=== PATIENT | female | born 1955 | race Caucasian/White ===

== ENCOUNTER 2025-05-01 12:43 | Emergency (ER) | payer OTHER, SELFPAY ==
[2025-05-01 12:48] VITALS: BP 203/102; PULSE 84; RESP 16; TEMP 37.1; O2SAT 92; BMI 34.0
--- OUTSIDE RECORDS SUMMARY | 2025-05-01 12:49 | XMS_ITS | Clinical Summary ---
Author Organization [facility] Address formerly [facility] [place] [address] Care Team Providers Care Senior Counsel Commercial Name Role Phone Claude Allen MD Unavailable Unavailable Jung Clayton MD Unavailable [phone] Pcp, No Primary Care Provider Unavailabl e Allergies No known active allergies Medications biotin 1 mg cap Take 1 capsule by mouth. 0 0 Active aspirin chewable 81 mg chewable tablet Chew 1 Tablet by mouth once daily. Active cholecalciferol, Vitamin D3, 2,000 unit tablet Take 1 Tablet by mouth once daily. Active calcium carbonate (OS-BYRON 500) 500 mg calcium (1,250 mg) tablet Take 1 Tablet by mouth once daily with a meal. Active multivitamin chew Chew 1 Tablet by mouth once daily. Active Magnesium 200 mg tabIndications:Pal pitations Take magnesium 200-400 mg daily or as needed. Prefer to use magnesium glycinate, but if unable to find, use malate or citrate. 30 Tablet 1 Active nystatin powder (MYCOSTATIN) powderIndications: Rash Apply 1 Strip topically to affected area(s) 2 times daily if needed. 60 g 1 1 Active verapamiL (VERELAN) 240 mg Controlled-Release capsuleIndications :Hypertrophic cardiomyopathy (HC),Coronary artery disease involving [place] coronary artery without angina pectoris, unspecified whether [place] or transplanted heart TAKE ONE CAPSULE BY MOUTH EVERY MORNING ++due for follow-up in september 2023++ 30 Capsule 4 Active metoprolol tartrate (LOPRESSOR) 25 mg tabletIndications: Hypertrophic cardiomyopathy (HC),Palpitations Take 1 Tablet (25 mg) by mouth two times daily. 180 Tablet 3 5 Active verapamiL (VERELAN) 240 mg Controlled-Release capsuleIndications :Hypertrophic cardiomyopathy (HC),Coronary artery disease involving [place] coronary artery without angina pectoris, unspecified whether [place] or transplanted heart Take 1 Capsule (240 mg) by mouth once daily in the morning. 90 Capsule 3 5 Active Active Problems Problem Noted Date Diagnosed Date Obstructive hypertrophic cardiomyopathy 04/23/20 21 Tobacco use disorder 09/15/2015 Overview (04/23/2021): oast use of Chantix; trying E-Cig; clinic resources provided Nontoxic uninodular goiter 02/03/2007 Encounters Date Type Department Care Team Description 02/07/2025 11:00 AM CDT Office Visit [facility] [place] [address] Jung Clayton MD Follow Up (After Testing) 02/07/2025 Travel from Last 3 Months Immunizations Immunization Administration Dates Next Due COVID-19 vaccine (Moderna 100mcg/0.5mL) PF, MDV 09/26/2020,08/29/2020 Influenza, High-dose Inactivated 04/03/2019 Influenza, High-dose Quadrivalent Inactivated ,03/10/2020 Influenza, IIV3 (Age >=3 years) 08/15/2006 Influenza, IIV4 (=>6mos) MDV 04/25/2017,05/05/20 16 Pneumococcal Poly,23-Valent (Pneumovax) 09/15/19 16,04/23/2009 Zoster (Shingrix-RZV, recombinant) 05/14/2020, Family History Medical History Relation Name Comments Aneurysm Mother COPD Mother Cancer-breast Paternal Aunt Relation Name Status Comments Father Mother Paternal Aunt Social History Tobacco Use Types Packs/Day Years Used Date Smoking Tobacco: Former Cigarettes 1.5 30 1 08/11/1990 - 06/10/2021 Smokeless Tobacco: Never Tobacco Cessation:Counseling Given: Not Answered Alcohol Use Standard Drinks/Week Comments Not Currently 0 (1 standard drink = 0.6 oz pur e alcohol) PHQ-2 Answer Date Recorded PHQ-2 TOTAL SCORE 0 04/23/2021 Financial Resource Strain Answer Date R ecorded Difficulty of Paying Living Expenses Not on file 07/08/2021 Difficulty of Paying Living Expenses Not on file 07/08/2021 Comments No Sex and Gender Information Value Date Recorded Sex Assigned at Not on file Legal Sex Female 6:16 AM SCREEN MAKING TECHNICIAN Gender Identity Not on file Sexual Orientation Not on file Occupation Industry Job Start Date Job End Date retired, 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 Not on file Not on file Not on file Obstetrics History Last Filed Vital Signs Vital Sign Reading Time Taken Comments Blood Pressure 148/83 02/07/2025 10:50 AM CDT Pulse 70 02/07/2025 10:48 AM CDT Temperature 36.7 C (98 F) 05/28/2022 2:36 PM SCREEN MAKING TECHNICIAN Respiratory Rate 17 02/07/2025 10:48 AM CDT Oxygen Saturation 97% 02/07/2025 10:48 AM CDT Inhaled Oxygen Concentration - - Weight 96.2 kg (212 lb) 02/07/2025 10:48 AM CDT Height 168.9 cm (5' 6.5) 02/07/2025 10:48 AM CD T Body Mass Index 33.71 02/07/2025 10:48 AM CDT Plan of Treatment Health Maintenance Due Date Last Done Comments Tetanus booster 1964 Hepatitis C screening for age 18-79 10/24/1971 Colonoscopy through age 75 1998 RSV vaccine for adults or (1 - Risk 60-74 years 1-dose series) 2013 Pneumococcal series for age 50+ (2 of 2 - PCV) 09/14/2016 09/15/2015, 04/23/[address] (for lung CA) age 50-80 07/28/2017 07/28/2016 Depression screening for age 12+ 04/23/2022 04/23/2021 Medicare Wellness for age 65+ 04/24/2022 04/23/2021 Mammogram for age 45-75 08/26/2024 08/26/2023, 08/11 Influenza Vaccine (#1) 2025 9, 04/25/2017, 05/05/2016, Additional history exists BMI (ht and wt on same day) for age 18+ 02/07/2026 02/07/2025, 10/20/2023, 09/23/2022, Additional history exists Lipids for age 45-75 09/21/2027 09/20/2022, 04/23/20 Zoster (shingles) series for age 50+ Completed 05/14/2020, 03/10/2020 DEXA/DXA scan for age 65+ Completed 04/23/2021 COVID-19 vaccine series Completed 11/10/19, 04/11/2024, 10/05/2023, Additional history exists Hepatitis B series for 19+ Aged Out N o longer eligible based on patient's age to complete this topic Procedures Procedure Name Priority Date/Time Associated Diagnosis Comments XR MAMMO BILAT SCREENING Routine 08/26/2023 8:25 AM SCREEN MAKING TECHNICIAN Visit for screening mammogram LC LIPID PANEL AND CHOL/HDL RATIO Routine 09/20/2022 10:08 AM CDT Hyperlipemia XR DXA BONE DENSITY 2 SITES AXIAL Routine 04/23/2021 11:[address] CHEST W STAT 07/28/2016 2:02 PM SCREEN MAKING TECHNICIAN Abnormal chest x-ray from Last 3 Months or Most Recently Relevant to Health Maintenance Results * XR MAMMO BILAT SCREENING (08/26/2023 8:25 AM SCREEN MAKING TECHNICIAN) Anatomical Region Laterality Modality BREASTS, Breast Left, Breast Right Bilateral Mammography Impressions 08/29/2023 9:12 AM SCREEN MAKING TECHNICIAN There is no radiographic evidence for malignancy. Recommend annual mammograms. MAMMOGRAM ASSESSMENT: ACR 1 Negative PATIENTS: You will also receive a letter with your examination results in an easy to read format. If you have questions about your results, please contact your referring provider. Narrative 08/29/2023 9:12 AM SCREEN MAKING TECHNICIAN For Patients: As a result of the Cures Act, medical imaging exams and procedure reports are released immediately into your electronic medical record. You may view this report before your referring provider. If you have questions, please contact your health care provider. XR MAMMO BILAT SCREENING [[id number]] CLINICAL HISTORY: This is an asymptomatic 67 y.o. patient. INDICATION FOR EXAM: Mammogram Screening. TECHNIQUE: CC & MLO views were obtained. This study was evaluated with the assistance of Computer-Aided Detection. COMPARISON FILM: Yes 08/11/21 [facility] FINDINGS: The breasts have scattered areas of fibroglandular density. There are no dominant masses, suspicious micro calcifications or areas of architectural distortion. Janan Severino DO MAMMO Final Result * LC LIPID PANEL AND CHOL/HDL RATIO (09/20/2022 10:08 AM CDT) Pathologist [facility] Cholesterol, Total 138 100 - 199 mg/dL 09/22/2022 10:10 AM [facility] Triglycerides 149 0 - 149 mg/dL 09/22/2022 10:10 AM [facility] HDL Cholesterol 41 >39 mg/dL 10:10 AM [facility] VLDL Cholesterol Byron 26 5 - 40 mg/dL 09/22/2022 10:10 AM [facility] LDL Chol Calc (NIH) 71 0 - 99 mg/dL 09/22/2022 10:10 AM [facility] T. Chol/HDL Ratio 3.4 0.0 - 4.4 ratio 09/22/2022 10:10 AM [facility] ([facility] Comment: T. Chol/HDL Ratio Men Women 1/2 Avg.Risk 3.4 3.3 Avg.Risk 5.0 4.4 2X Avg.Risk 9.6 7.1 3X Avg.Risk 23.4 11.0 Blood BLOOD SPECIMEN / Unknown Venipuncture / Unknown 09/20/2022 10:08 AM CDT 09/20/2022 10:08 AM CDT Narrative [facility] ([facility]) - 09/22/2022 10:10 AM CDT Performed at: 01 - [facility] [address], [place], [place] [id number] Door Slinger: Liam Maharaj MD, Phone: [phone] us Janna Severino SEND OUTS Final Result [facility] ([facility]) [address] [place] [address], [place] * XR DXA BONE DENSITY 2 SITES AXIAL [17446.1] (04/23/2021 11:20 AM CDT) Anatomical Region Laterality Modality Spine, HIPS, HIPL, HIPR Computed Radiography 04/23/2021 11:2 0 AM CDT Narrative 04/23/2021 11:49 AM CDT For Patients: As a result of the Cures Act, medical imaging exams and procedure reports are released immediately into your electronic medical record. You may view this report before your referring provider. If you have questions, please contact your health care provider. EXAM: XR DXA BONE DENSITY 2 SITES AXIAL LOCATION: [facility] DATE/TIME: 04/23/2021 11:20 AM INDICATION: Postmenopausal. Bone mineral density screening. I. other (screening- at minimum one option in 2-5 must be selected) - z13.820 Menopause COMPARISON: None. TECHNIQUE: Dual-energy x-ray absorptiometry performed with routine technique. FINDINGS: Lumbar Spine: L1-L4: BMD: 1.160 g/cm2. T-score: -0.2. Z-score: 0.9 RIGHT Hip Total: BMD: 1.000 g/cm2. T-score: -0.1. Z-score: 0.9 RIGHT Hip Femoral neck: BMD: 1.003 g/cm2. T-score: -0.3. Z-score: 1.0 LEFT Hip Total: BMD: 0.953 g/cm2. T-score: -0.4. Z-score: 0.5 LEFT Hip Femoral neck: BMD: 0.870 g/cm2. T-score: -1.2. Z-score: 0.0 WHO Criteria: Normal: T score at or above -1 SD Osteopenia: T score between -1 and -2.5 SD Osteoporosis: T score at or below -2.5 SD FRAX Results: 10 year probability of major osteoporotic fracture is 15.1%, and of hip fracture is 2.1%, based on left femoral neck BMD. RECOMMENDATIONS: Consider treatment if major osteoporotic fracture score is greater than or equal to 20%. Consider treatment if hip fracture score is greater than or equal to 3%. IMPRESSION: Low bone density (OSTEOPENIA). T score meets the World Health Organization (WHO) criteria for low bone density (osteopenia) at one or more measured sites. The risk of osteoporotic fracture increased approximately two-fold for each SD decrease in T-score. Procedure Note Rony Zendejas MD - 04/23/2021 For Patients: As a result of the Cures Act, medical imagingexams and procedure reports are released immediately into your electronicmedical record. You may view this report before your referring provider.If you have questions, please contact your health care provider. EXAM: XR DXA BONE DENSITY 2 SITES AXIAL LOCATION: [facility] DATE/TIME: 04/23/2021 11:20 AM INDICATION: Postmenopausal. Bone mineral density screening. I. other(screening- at minimum one option in 2-5 must be selected) - z13.820Menopause COMPARISON: None. TECHNIQUE: Dual-energy x-ray absorptiometry performed with routinetechnique. FINDINGS: Lumbar Spine: L1-L4: BMD: 1.160 g/cm2. T-score: -0.2. Z-score: 0.9 RIGHT Hip Total: BMD: 1.000 g/cm2. T-score: -0.1. Z-score: 0.9 RIGHT Hip Femoral neck: BMD: 1.003 g/cm2. T-score: -0.3. Z-score: 1.0 LEFT Hip Total: BMD: 0.953 g/cm2. T-score: -0.4. Z-score: 0.5 LEFT Hip Femoral neck: BMD: 0.870 g/cm2. T-score: -1.2. Z-score: 0.0 WHO Criteria: Normal: T score at or above -1 SD Osteopenia: T score between -1 and -2.5 SD Osteoporosis: T score at or below -2.5 SD FRAX Results: 10 year probability of major osteoporotic fracture is 15.1%,and of hip fracture is 2.1%, based on left femoral neck BMD. RECOMMENDATIONS: Consider treatment if major osteoporotic fracture score is greater than orequal to 20%. Consider treatment if hip fracture score is greater than orequal to 3%. IMPRESSION: Low bone density (OSTEOPENIA). T score meets the World HealthOrganization (WHO) criteria for low bone density (osteopenia) at one ormore measured sites. The risk of osteoporotic fracture increasedapproximately two-fold for each SD decrease in T-score. us Janna Severino DO DEXA Final Result * CT CHEST W (07/28/2016 2:02 PM SCREEN MAKING TECHNICIAN) Anatomical Region Laterality Modality CHEST, THORAX, HEART Computed To mography 07/28/2016 2:02 PM SCREEN MAKING TECHNICIAN Narrative 07/28/2016 2:19 PM SCREEN MAKING TECHNICIAN [facility] IMAGING CT CHEST W 07/28/2016 2:02 PM INDICATION: Abnormal Chest X-ray TECHNIQUE: Routine chest. Dose reduction techniques were used. IV CONTRAST: Omnipaque 300 50ml COMPARISON: Rib series 07/28/2016. FINDINGS: LUNGS AND PLEURA: There is diffuse interlobular septal thickening with scattered geographic groundglass attenuation. The left lung is relatively clear without mass or nodularity. No consolidation. There is mild atelectasis in the medial segment of the right middle lobe. In the anterior basal segment of the right lower lobe, there is patchy consolidation with diffuse surrounding groundglass and intralobular septal thickening. This correlates with the finding on recent prior radiographs. There is mild fluid or thickening in the interstitium bilaterally and along the right major fissure. There is a small right pleural effusion. No pneumothorax. MEDIASTINUM: Partially visualized in the right upper thyroid lobe is a 7 mm low-density nodule with adjacent calcification. There are multiple mildly enlarged mediastinal lymph nodes, measuring up to 1.0 cm short axis in the precarinal station on series 3, image 80. There is mild subcarinal adenopathy that measures 1.9 x 1.7 cm. Mild right hilar adenopathy. No cardiomegaly. Mild pericardial effusion. No acute abnormality in the visualized thoracic aorta. Mild aortic atherosclerosis. Atherosclerotic calcification the distribution of the LAD and LCx. LIMITED UPPER ABDOMEN: Mild diffuse low-attenuation in the liver with probable focal fatty infiltration or perfusion anomaly adjacent to the falciform ligament. MUSCULOSKELETAL: Negative. CONCLUSION: 1. Right lower lobe consolidation with extensive surrounding groundglass attenuation. This likely represents an acute infection. This may represent bacterial pneumonia. After an appropriate course of treatment, recommend follow-up standard PA and lateral views of the chest in 6 weeks to document resolution. 2. There is also moderate bilateral interstitial edema, small right pleural effusion, and a mild pericardial effusion. 3. There is mild, probably reactive mediastinal and right hilar adenopathy. 4. Atherosclerosis with at least two-vessel coronary artery disease. 5. There is a 7 mm right thyroid lobe nodule with adjacent calcification. Please consider further evaluation with nonemergent thyroid ultrasound. 6. Mild diffuse hepatic steatosis. Procedure Note So, Gene De La Curz MD - 07/28/2016 [facility] IM[facility] CT CHEST W 07/28/2016 2:02 PM INDICATION: Abnormal Chest X-ray TECHNIQUE: Routine chest. Dose reduction techniques were used. IV CONTRAST: Omnipaque 300 50ml COMPARISON: Rib series 07/28/2016. FINDINGS: LUNGS AND PLEURA: There is diffuse interlobular septal thickening withscattered geographic groundglass attenuation. The left lung is relativelyclear without mass or nodularity. No consolidation. There is mildatelectasis in the medial segment of the right middle lobe. In theanterior basal segment of the right lower lobe, there is patchyconsolidation with diffuse surrounding groundglass and intralobular septalthickening. This correlates with the finding on recent prior radiographs.There is mild fluid or thickening in the interstitium bilaterally andalong the right major fissure. There is a small right pleural effusion. Nopneumothorax. MEDIASTINUM: Partially visualized in the right upper thyroid lobe is a 7mm low-density nodule with adjacent calcification. There are multiplemildly enlarged mediastinal lymph nodes, measuring up to 1.0 cm short axisin the precarinal station on series 3, image 80. There is mild subcarinaladenopathy that measures 1.9 x 1.7 cm. Mild right hilar adenopathy. Nocardiomegaly. Mild pericardial effusion. No acute abnormality in thevisualized thoracic aorta. Mild aortic atherosclerosis. Atheroscleroticcalcification the distribution of the LAD and LCx. LIMITED UPPER ABDOMEN: Mild diffuse low-attenuation in the liver withprobable focal fatty infiltration or perfusion anomaly adjacent to thefalciform ligament. MUSCULOSKELETAL: Negative. CONCLUSION: 1. Right lower lobe consolidation with extensive surrounding groundglassattenuation. This likely represents an acute infection. This may representbacterial pneumonia. After an appropriate course of treatment, recommendfollow-up standard PA and lateral views of the chest in 6 weeks todocument resolution. 2. There is also moderate bilateral interstitial edema, small rightpleural effusion, and a mild pericardial effusion. 3. There is mild, probably reactive mediastinal and right hilaradenopathy. 4. Atherosclerosis with at least two-vessel coronary artery disease. 5. There is a 7 mm right thyroid lobe nodule with adjacent calcification.Please consider further evaluation with nonemergent thyroid ultrasound. 6. Mild diffuse hepatic steatosis. Janna Severino DO CT Final Result from Last 3 Months or Most Recently Relevant to Health Maintenance Insurance [employer] [place] [id number] MEDICARE PART A HB ONLY [employer] Care Teams Senior Counsel Commercial Relationship Specialty Start Date End Date Pcp, No . PCP - General 11/22/23 Claude Allen MD Cardiovascular Disease 04/23/21 [place] [id number] [place] [address] Consulting Physician Cardiovascular Disease 10/05/23
--- NOTE | 2025-05-01 13:05 | ED.GENADULT ---
HPI - General Adult General Chief complaint: Skin/Abscess/Foreign Body Stated complaint: R leg wound Time Seen by Provider: 05/01/25 12:45 History of Present Illness HPI narrative: Patient a left anterior sutton eschar and cellulitic area that she has been on doxycycline for few days. She notices it is probably slightly better but still continues to have a central eschar that is darkened. About a 50 cent piece size it is about a dollar bill size of the cellulitis. She slid under her bed and thinks she scraped it on metal. She vapes but does not smoke, nondiabetic. Related Data Home Medications ?Medication ?Instructions ?Recorded ?Confirmed metoprolol tartrate 25 mg tablet 25 mg PO BID 04/29/25 05/01/25 verapamil 240 mg 24 hr 240 mg PO QAM 04/29/25 05/01/25 capsule,extended release Previous Rx's ?Medication ?Instructions ?Recorded doxycycline hyclate 100 mg tablet 100 mg PO BID 10 days #20 tabs 04/29/25 sulfamethoxazole 800 1 tab PO BID #14 tabs 05/01/25 mg-trimethoprim 160 mg tablet (Bactrim DS) Allergies Allergy/AdvReac Type Severity Reaction Status Date / Time No Known Allergies Allergy Mild Verified 05/01/25 12:48 Review of Systems Status of ROS: Reports: 6 or more systems reviewed and unremarkable except as noted in History and below [facility] Medical History Cellulitis ?L03.90 - Cellulitis, unspecified (ICD-10) Exam Narrative: Exam Narrative: Patient has elevated blood pressure this will be repeated She is afebrile There is a 50 cent piece size eschar that appears somewhat deep through the dermis but is covered and looks like there is no weeping or marked drainage. There is redness and warmth around it about the size of a dollar bill with eschar in the center. No other concerning findings on the leg. She was given updated tetanus shot at Urgent Care Const: Vital Signs, click to edit/add: Vital Signs - 24 hr 05/01/25 12:48 Temperature 98.7 F Pulse Rate [Pulse Oximeter] 84 Respiratory Rate 16 Blood Pressure [Ri ght Upper Arm] 203/102 H Pulse Oximetry 92 Oxygen Delivery Me thod Room Air Course Vital Signs Vital signs: Initial Vital Signs Temperature 98.7 F 05/01/25 12:48 Temperature Source Temporal Artery Scan 05/01/25 12:48 Pulse Rate 84 05/01/25 12:48 Respiratory Rate 16 05/01/25 12:48 Blood Pressure 203/102 H 05/01/25 12:48 Blood Pressure Mean 135 H 05/01/25 12:48 Blood Pressure Position High-Fowlers 05/01/25 12:48 Pulse Oximetry 92 05/01/25 12:48 Oxygen Delivery Method Room Air 05/01/25 12:48 Vital Signs Temperature 98.7 F 05/01/25 12:48 Pulse Rate 84 05/01/25 12:48 Respiratory Rate 16 05/01/25 12:48 Blood Pressure 203/102 H 05/01/25 12:48 Pulse Oximetry 92 05/01/25 12:48 Oxygen Delivery Method Room Air 05/01/25 12:48 Temperature 98.7 F 05/01/25 12:48 Pulse Rate 84 05/01/25 12:48 Respiratory Rate 16 05/01/25 12:48 Blood Pressure 203/102 H 05/01/25 12:48 Pulse Oximetry 92 05/01/25 12:48 Oxygen Delivery Method Room Air 05/01/25 12:48 Medical Decision Making MDM Narrative Medical decision making narrative: 69-year-old female with a right anterior sutton ulcer eschar, cellulitis. I think at this point would have her continue the doxycycline will add Septra DS 2 at 1 p.o. b.i.d. for 7 days. Continue local care, will trying get her in to the wound clinic. She was given up-to-date on tetanus. She is comfortable plan. Discharge Plan Discharge Clinical Impression: Cellulitis Patient Disposition: Home, Self-Care Condition: Stable Additional Instructions: Keep doing local wound treatment, will give you Rocephin IM today, add Bactrim to your doxycycline for potential infection. Will have you set up to see the wound clinic. Activity Level: Light activity Discharge Diet: Regular Prescriptions: New sulfamethoxazole-trimethoprim [Bactrim DS] 800-160 mg tablet 1 tab PO BID Qty: 14 0RF No Action verapamil 240 mg capsule,ext rel. pellets 24 hr 240 mg PO QAM metoprolol tartrate 25 mg tablet 25 mg PO BID doxycycline hyclate 100 mg tablet 100 mg PO BID 10 Days Qty: 20 0RF Follow Up/Referrals: Provider,Not a Local [Primary Care Provider, Family Practice] Stand Alone Forms: [employer] Info Instructions
[2025-05-01] MEDS: cefTRIAXone 500 MG VIAL IM (13:18)
[2025-05-01] MEDS: LIDOCAINE 1% 5 ml (pf) 5 ML VIAL 1 ML IM (13:18)
== END 2025-05-01 13:28 | disposition home or self-care (01) ==
LOC: ED 13:13
PROVIDERS: Emergency Provider Family Medicine
DX: L03.115 Cellulitis of right lower limb (principal)
CPT/HCPCS: 96372; 99283; J0696

== ENCOUNTER 2025-05-03 09:10 | Outpatient (CLI) | payer OTHER, SELFPAY | END 2025-05-03 09:11 | disposition home or self-care (01) | LOC: WOUND 09:12 | PROVIDERS: Referring Provider Family Medicine; Visit Provider Nurse Practitioner Family | DX: S81.812A Laceration without foreign body, left lower leg, initial encounter (principal); Z72.0 Tobacco use; W06.XXXA Fall from bed, initial encounter | CPT/HCPCS: 11042 ==

== ENCOUNTER 2025-05-10 10:40 | Outpatient (CLI) | payer OTHER, SELFPAY | END 2025-05-10 10:41 | disposition home or self-care (01) | PROVIDERS: Visit Provider Nurse Practitioner Family | DX: S81.812D Laceration without foreign body, left lower leg, subsequent encounter (principal); Z72.0 Tobacco use; W06.XXXD Fall from bed, subsequent encounter | CPT/HCPCS: 11042 ==

== ENCOUNTER 2025-05-17 10:34 | Outpatient (CLI) | payer OTHER, SELFPAY | END 2025-05-17 10:35 | disposition home or self-care (01) | LOC: WOUND 10:34 | DX: S81.812D Laceration without foreign body, left lower leg, subsequent encounter (principal); Z72.0 Tobacco use; W06.XXXD Fall from bed, subsequent encounter | CPT/HCPCS: 11042 ==

== ENCOUNTER 2025-05-24 10:33 | Outpatient (CLI) | payer OTHER, SELFPAY | END 2025-05-24 10:34 | disposition home or self-care (01) | LOC: WOUND 10:33 | PROVIDERS: Visit Provider Nurse Practitioner Family | DX: S81.812A Laceration without foreign body, left lower leg, initial encounter (principal); L03.116 Cellulitis of left lower limb; F17.290 Nicotine dependence, other tobacco product, uncomplicated | CPT/HCPCS: 11042 ==

== ENCOUNTER 2025-05-31 10:36 | Outpatient (CLI) | payer OTHER, SELFPAY | END 2025-05-31 10:37 | disposition home or self-care (01) | LOC: WOUND 10:36 | PROVIDERS: Visit Provider Nurse Practitioner Family | DX: S81.811A Laceration without foreign body, right lower leg, initial encounter (principal); W06.XXXA Fall from bed, initial encounter | CPT/HCPCS: 11042 ==

== ENCOUNTER 2025-06-07 10:40 | Outpatient (CLI) | payer OTHER, SELFPAY | END 2025-06-07 10:41 | disposition home or self-care (01) | LOC: WOUND 10:40 | PROVIDERS: Visit Provider Physician Assistant | DX: S81.811A Laceration without foreign body, right lower leg, initial encounter (principal); W06.XXXA Fall from bed, initial encounter | CPT/HCPCS: 97597 ==

== ENCOUNTER 2025-06-14 10:35 | Outpatient (CLI) | payer OTHER, SELFPAY | END 2025-06-14 10:36 | disposition home or self-care (01) | LOC: WOUND 10:35 | PROVIDERS: Visit Provider Nurse Practitioner Family | DX: S81.811A Laceration without foreign body, right lower leg, initial encounter (principal); W06.XXXA Fall from bed, initial encounter | CPT/HCPCS: 11042 ==